=== PATIENT | female | born 1960 | race Caucasian/White ===

== ENCOUNTER 2018-09-18 22:43 | Emergency (ER) | payer OTHER ==
[2018-09-18 23:37] LABS: PLATELET COUNT 237 10^3/uL (150-400)
--- NOTE | 2018-09-19 00:22 | EDPHY ---
H & P Stated Complaint: Lightheaded, BP@home 150's. Time Seen by Provider: 09/18/18 22:57 HPI/ROS: Chief complaint: Lightheaded, elevated blood pressure History of present illness: This is a 57-year-old female who presents to the emergency department reporting lightheadedness and elevated blood pressure. Patient is generally healthy. She was riding her horse today when she started to become lightheaded. The lightheadedness has slowly improved. She has measured her blood pressure home and noted it to be elevated in the 150s. She has no history of high blood pressure. She denies any associated signs or symptoms including no headache or neck pain, no chest pain or trouble breathing , no abdominal pain, no nausea or vomiting, no urinary symptoms. Review of systems: A 10 point review of systems was obtained and other than described above was negative - Personal History Current Tetanus/Diphtheria Vaccine: Yes Current Tetanus Diphtheria and Acellular Pertussis (TDAP): Yes - Medical/Surgical History Hx Asthma: No Hx Chronic Respiratory Disease: No Hx Diabetes: No Hx Cardiac Disease: No Hx Renal Disease: No Hx Cirrhosis: No Hx Alcoholism: No Hx HIV/AIDS: No Hx Splenectomy or Spleen Trauma: No Other PMH: appy. tonsils - Social History Smoking Status: Never smoked - Physical Exam Exam: General Appearance: Alert, nontoxic. Eyes: Pupils equal and round no pallor or injection. ENT, Mouth: Mucous membranes moist. Respiratory: There are no retractions, lungs are clear to auscultation. Cardiovascular: Regular rate and rhythm. Gastrointestinal: Abdomen is soft and non tender, no masses, bowel sounds normal. Neurological: Alert and oriented x4. Cranial nerves 2-12 grossly intact. Strength and sensation intact and symmetrical. Skin: Warm and dry, no rashes. Musculoskeletal: Neck is supple non tender. Extremities are symmetrical, full range of motion. Psychiatric: Patient is oriented X 3, there is no agitation. Constitutional: Initial Vital Signs Temperature (C) 36.4 C 09/18/18 22:45 Heart Rate 87 09/18/18 22:45 Respiratory Rate 20 09/18/18 22:45 Blood Pressure 176/119 H 09/18/18 22:45 O2 Sat (%) 95 09/18/18 22:45 O2 Delivery Mode Room Air Allergies/Adverse Reactions: Sulfa (Sulfonamide Antibiotics) [Sulfa(Sulfonamide Antibiotics)] Allergy ( Verified 09/18/18 22:45) Home Medications: Medication Instructions Recorded Miscellaneous Medical Supply [NO 1 ea MISC AD 03/18/12 HOME MEDS] Medical Decision Making ED Course/Re-evaluation: Patient is discussed with my secondary supervising physician Dr. Leonid Zhu. Patient presents to the emergency department reporting dizziness earlier today that has been improving and an elevated blood pressure. She denies any other associated signs or symptoms besides mild dizziness. Physical exam is benign including a nonfocal neurologic exam. EKG and blood studies obtained and unremarkable. On re-evaluation her blood pressure has improved to 150/101. She is comfortable being discharged. She will follow up with a primary care doctor for recheck. Strict return precautions are given. The patient voiced understanding and agreement with plan. Differential Diagnosis: Included but not limited to hypertension, hypertensive emergency, electrolyte disturbance, ACS, doubtful stroke - Data Points Laboratory Results: Laboratory Results 09/18/18 23:27 09/18/18 23:27 09/18/18 09/18/18 09/18/18 23:28 23:27 23:27 WBC 5.69 10^3/uL 10^3/uL (3.80-9.50) RBC 4.59 10^6/uL 10^6/uL (4.18-5.33) Hgb 14.5 g/dL g/dL (12.6-16.3) Hct 41.9 % % (38.0-47.0) MCV 91.3 fL fL (81.5-99.8) MCH 31.6 pg pg (27.9-34.1) MCHC 34.6 g/dL g/dL (32.4-36.7) RDW 12.7 % % (11.5-15.2) Plt Count 237 10^3/uL 10^3/uL (150-400) MPV 9.0 fL fL (8.7-11.7) Neut % (Auto) 47.6 % % (39.3-74.2) Lymph % (Auto) 40.8 % % (15.0-45.0) [place] % (Auto) 7.7 % % (4.5-13.0) Eos % (Auto) 3.0 % % (0.6-7.6) Baso % (Auto) 0.7 % % (0.3-1.7) Nucleat RBC Rel Count 0.0 % % (0.0-0.2) Absolute Neuts (auto) 2.71 10^3/uL 10^3/uL (1.70-6.50) Absolute Lymphs (auto) 2.32 10^3/uL 10^3/uL (1.00-3.00) Absolute Monos (auto) 0.44 10^3/uL 10^3/uL (0.30-0.80) Absolute Eos (auto) 0.17 10^3/uL 10^3/uL (0.03-0.40) Absolute Basos (auto) 0.04 10^3/uL 10^3/uL (0.02-0.10) Absolute Nucleated RBC 0.00 10^3/uL 10^3/uL (0-0.01) Immature Gran % 0.2 % % (0.0-1.1) Immature Gran # 0.01 10^3/uL 10^3/uL (0.00-0.10) Sodium 138 mEq/L mEq/L (135-145) Potassium 3.9 mEq/L mEq/L (3.5-5.2) Chloride 105 mEq/L mEq/L (97-110) Carbon Dioxide 24 mEq/l mEq/l (22-31) Anion Gap 9 mEq/L mEq/L (6-14) BUN 15 mg/dL mg/dL (7-23) Creatinine 0.7 mg/dL mg/dL (0.6-1.0) Estimated GFR > 60 Glucose 102 mg/dL H mg/dL (70-100) Calcium 9.8 mg/dL mg/dL (8.5-10.4) POC Troponin I 0.01 ng/mL ng/mL (0.00-0.08) Point of Care Test Results: Chemistry 09/18/18 23:28 POC Troponin I 0.01 ng/mL ng/mL (0.00-0.08) Departure - Departure Disposition: Home, Routine, Self-Care Clinical Impression: Elevated blood pressure reading without diagnosis of hypertension Condition: Good Instructions: Chronic Hypertension (ED) Additional Instructions: Please call your doctor tomorrow for recheck of your blood pressure. If symptoms worsen or new symptoms develop return to the emergency room for recheck Referrals: Marleen Paula MD [Primary Care Provider] - As per Instructions
[2018-09-19 00:29] VITALS: BP 151/101
--- NOTE | 2018-09-19 02:17 | CPEKG ---
Test Reason : OPEN Blood Pressure : / mmHG Vent. Rate : 076 BPM Atrial Rate : 075 BPM P-R Int : 184 ms QRS Dur : 093 ms QT Int : 427 ms P-R-T Axes : 061 057 022 degrees QTc Int : 481 ms Sinus rhythm Probable left atrial enlargement Probable left ventricular hypertrophy Confirmed by Leonid Vigil ([id number] on 09/19/2018 2:16:54 AM Referred By: Leonid Vigil Confirmed By:Leonid Vigil
== END 2018-09-19 00:29 | disposition home or self-care (01) ==
DX: R42 Dizziness and giddiness (principal); R03.0 Elevated blood-pressure reading, without diagnosis of hypertension
CPT/HCPCS: 84484-ER

== ENCOUNTER → 2018-10-17 | Outpatient (CLI) | payer OTHER | LOC: FIMAGING 07:29 | PROVIDERS: ATTEND Internal Medicine Cardiovascular Disease | DX: R09.89 Other specified symptoms and signs involving the circulatory and respiratory systems (principal) ==